=== PATIENT | female | born 1935 | race Caucasian/White ===

== ENCOUNTER 2019-04-14 14:54 | Emergency (ER) | payer MEDICARE, BC ==
[~2019-04-14] VITALS: Ht 160 cm; Wt 79.0 kg
[~2019-04-14 14:54] MED LIST: LOSA50TA3 PO; OMEP20TA5 PO
[2019-04-14] MEDS ORDERED: morphine 4 MG/ML inj SYRINge IV ONE (16:20)
[2019-04-14] MEDS ORDERED: ondansetron/PF 4mg/2ml inj IV ONE (16:20)
[2019-04-14] MEDS ORDERED: morphine ER 15mg tablet PO ONE ×2 (17:25→19:20)
[2019-04-14 18:08] VITALS: BP 177/81
[2019-04-14] MEDS ORDERED: MORP15TA PO (19:19)
[2019-04-14] MEDS ORDERED: ONDA4TAB6 PO (19:21)
== END 2019-04-14 19:47 | disposition home or self-care (01) ==
LOC: ER 14:54
DX: S32.028A Other fracture of second lumbar vertebra, initial encounter for closed fracture (principal); M25.562 Pain in left knee; I10 Essential (primary) hypertension; J45.909 Unspecified asthma, uncomplicated; Z98.890 Other specified postprocedural states; Z88.1 Allergy status to other antibiotic agents; Z88.2 Allergy status to sulfonamides; Z88.8 Allergy status to other drugs, medicaments and biological substances; Z88.5 Allergy status to narcotic agent; Z79.899 Other long term (current) drug therapy; W10.8XXA Fall (on) (from) other stairs and steps, initial encounter; Y93.89 Activity, other specified; Y92.098 Other place in other non-institutional residence as the place of occurrence of the external cause; Y99.8 Other external cause status
CPT/HCPCS: 72131; 72192; 73564; 96374; 96375; 99284; J2270; J2405

== ENCOUNTER 2021-02-05 08:08 | Day surgery (SDC) | payer MEDICARE, BC ==
[2021-02-05] VITALS (11 sets, daily range): BP systolic 114–150; BP diastolic 33–74
[~2021-02-05] VITALS: Ht 160 cm; Wt 71.4 kg
[~2021-02-05 08:08] MED LIST changes: +ONDA4TAB6 PO
[2021-02-05] MEDS ORDERED: vancomycin/NS 1 GM ADD-VANTAGE 250 ML X 1 DOSE IV ONE (08:35)
[2021-02-05] MEDS ORDERED: cefazolin/dext.iso 2gm/50ml 50 ML IV ONE (08:40)
[2021-02-05] MEDS ORDERED: CLINDAMYCIN/D5W 900mg/50ml 50 ML IV ONE (08:45)
[2021-02-05] MEDS ORDERED: INSU100I8 SQ (09:17)
[2021-02-05] MEDS ORDERED: fentaNYL/PF 50MCG/1 ML 2ML syringe ONE (09:24)
[2021-02-05] MEDS ORDERED: midazolam 1 mg/ML 2ml injection ONE (09:24)
[2021-02-05] MEDS ORDERED: LIDOcaine 1% w/EPI 1:100,000 30ml vial (MDV) ONE (09:24)
[2021-02-05] MEDS ORDERED: ceFAZolin 1000mg inj ONE (09:25)
[2021-02-05 09:45] LABS: BASOPHILS # (AUTO) 0.1 X10'3 (0-0.2); EOSINOPHILS # (AUTO) 0.2 X10'3 (0-0.9); EOSINOPHILS % (AUTO) 2.4 % (0-6); HEMATOCRIT 50.8 % (35.0-45.0); HEMOGLOBIN 17.3 g/dl (12.0-16.0); LYMPHOCYTES # (AUTO) 1.8 X10'3 (1.1-4.8); MEAN CORPUSCULAR HEMOGLOBIN 28.9 PG (27.0-31.0); MEAN CORPUSCULAR HGB CONC 34.1 g/dL (33.0-36.5); MEAN CORPUSCULAR VOLUME 84.6 FL (78-98); MEAN PLATELET VOLUME 9.3 FL (7.4-10.4); MONOCYTES # (AUTO) 0.5 X10'3 (0-0.9); MONOCYTES % (AUTO) 7.2 % (2-12); NEUTROPHILS # (AUTO) 4.3 X10'3 (1.8-7.7); NEUTROPHILS % (AUTO) 63.4 % (42-75); PLATELET COUNT 180 X10'3 (140-440); WHITE BLOOD COUNT 6.8 X10'3 (4.5-11.0)
[2021-02-05 09:52] LABS: ALBUMIN 4.1 G/DL (3.4-5.0); ANION GAP 11 (8-16); BLOOD UREA NITROGEN 26 MG/DL (7-18); BUN/CREATININE RATIO 20.5 (6.6-38.0); CALCIUM 9.5 MG/DL (8.5-10.1); CHLORIDE 104 MMOL/L (99-107); CREATININE 1.27 MG/DL (0.40-0.90); GLUCOSE 108 MG/DL (70-104); MAGNESIUM 2.4 MG/DL (1.5-2.4); POTASSIUM 4.2 MMOL/L (3.5-5.1); SODIUM 141 MMOL/L (135-145); eGFR 40 ML/MIN
[2021-02-05] MEDS ORDERED: vancomycin 1,000mg inj ONE (10:56)
[2021-02-05] MEDS ORDERED: normal saline 1000ml 1,000 ML IV SCH (12:10)
[2021-02-05] MEDS ORDERED: normal saline 1000ml 1,000 ML IV ONE (12:10)
[2021-02-05] MEDS ORDERED: diphenhydrAMINE 50 mg/ml inj IV ONE (13:55)
[2021-02-05] MEDS ORDERED: diphenhydrAMINE 50 mg/ml inj ONE (13:57)
== END 2021-02-05 15:30 | disposition home or self-care (01) ==
LOC: SSTAY O 08:08
PROVIDERS: ATTEND Internal Medicine Cardiovascular Disease
DX: Z45.010 Encounter for checking and testing of cardiac pacemaker pulse generator [battery] (principal); I42.9 Cardiomyopathy, unspecified; E11.9 Type 2 diabetes mellitus without complications; I50.20 Unspecified systolic (congestive) heart failure; Z98.890 Other specified postprocedural states; Z79.4 Long term (current) use of insulin; Z79.01 Long term (current) use of anticoagulants; Z96.651 Presence of right artificial knee joint; Z79.899 Other long term (current) drug therapy; Z88.8 Allergy status to other drugs, medicaments and biological substances; Z88.0 Allergy status to penicillin; Z88.2 Allergy status to sulfonamides; Z88.5 Allergy status to narcotic agent
CPT/HCPCS: 33228; 36415; 80048; 83735; 85025; 85610; 93005; 99152; 99153; C1785; C1894; J0690; J1200; J2250; J3010; J3370; A4620; A6258

== ENCOUNTER 2021-09-27 08:04 | Day surgery (SDC) | payer MEDICARE, BC ==
[~2021-09-27] VITALS: Ht 160 cm; Wt 70.4 kg
[~2021-09-27 08:04] MED LIST changes: +INSU100I8 SQ; -LOSA50TA3 PO; -OMEP20TA5 PO; -ONDA4TAB6 PO
[2021-09-27 08:28] VITALS: BP 124/67
[2021-09-27] MEDS ORDERED: NO HOME MEDS (08:36)
[2021-09-27] MEDS ORDERED: cefazolin/dext.iso 2gm/100ml 100 ML IV ONE (08:45)
[2021-09-27 09:52] LABS: ALBUMIN 3.1 G/DL (3.4-5.0); ANION GAP 14 (8-16); BLOOD UREA NITROGEN 35 MG/DL (7-18); BUN/CREATININE RATIO 43.8 (6.6-38.0); CALCIUM 9.1 MG/DL (8.5-10.1); CHLORIDE 108 MMOL/L (99-107); GLUCOSE 103 MG/DL (70-104); MAGNESIUM 1.9 MG/DL (1.5-2.4); POTASSIUM 3.9 MMOL/L (3.5-5.1); SODIUM 138 MMOL/L (135-145); TOTAL CARBON DIOXIDE 16.2 MMOL/L (24-32); eGFR 68 ML/MIN
[2021-09-27] MEDS ORDERED: midazolam 1 mg/ML 2ml injection ONE ×3 (10:07→11:37)
[2021-09-27] MEDS ORDERED: fentaNYL/PF 50MCG/1 ML 2ML syringe ONE (10:07)
[2021-09-27] MEDS ORDERED: LIDOCAINE 2% w/EPI 1:100:000 30mL injection MDV**cath lab 1 only ONE (10:08)
[2021-09-27] MEDS ORDERED: vancomycin 1,000mg inj ONE (10:29)
[2021-09-27] MEDS ORDERED: clindamycin-Cleocin 900mg/D5W 50 ML IV ONE (10:40)
[2021-09-27 10:46] LABS: EOSINOPHILS # (AUTO) 0.2 X10'3 (0-0.9)
[2021-09-27 10:48] LABS: BASOPHILS % (AUTO) 0.3 % (0-1); EOSINOPHILS % (AUTO) 2.4 % (0-6); HEMATOCRIT 46.3 % (35.0-45.0); HEMOGLOBIN 15.7 g/dl (12.0-16.0); LYMPHOCYTES % (AUTO) 23.4 % (21-51); MEAN CORPUSCULAR HEMOGLOBIN 28.7 PG (27.0-31.0); MEAN CORPUSCULAR HGB CONC 33.8 g/dL (33.0-36.5); MEAN CORPUSCULAR VOLUME 84.9 FL (78-98); MEAN PLATELET VOLUME 8.9 FL (7.4-10.4); MONOCYTES # (AUTO) 0.7 X10'3 (0-0.9); MONOCYTES % (AUTO) 7.7 % (2-12); NEUTROPHILS # (AUTO) 5.6 X10'3 (1.8-7.7); NEUTROPHILS % (AUTO) 66.2 % (42-75); RED BLOOD COUNT 5.46 X10'6 (4.20-5.60); RED CELL DISTRIBUTION WIDTH 13.9 % (11.5-14.5); WHITE BLOOD COUNT 8.4 X10'3 (4.5-11.0)
[2021-09-27 10:49] LABS: PLATELET COUNT 181 X10'3 (140-440)
[2021-09-27 12:10] VITALS: BP 118/67
[2021-09-27 12:25] VITALS: BP 132/60
[2021-09-27 12:40] VITALS: BP 134/64
[2021-09-27] MEDS ORDERED: pneumococcal 23-VAL P-sac vacc 25 mcg/0.5ml vial IMVAC ONE (13:05)
[2021-09-27 13:14] VITALS: BP 147/81
[2021-09-27 13:45] VITALS: BP 142/80
== END 2021-09-27 14:30 | disposition home or self-care (01) ==
LOC: SSTAY O 08:04
PROVIDERS: ATTEND Internal Medicine Cardiovascular Disease
DX: I50.20 Unspecified systolic (congestive) heart failure (principal); Z53.8 Procedure and treatment not carried out for other reasons; I42.9 Cardiomyopathy, unspecified; E11.9 Type 2 diabetes mellitus without complications; Z95.0 Presence of cardiac pacemaker; Z98.890 Other specified postprocedural states; Z79.4 Long term (current) use of insulin; Z79.899 Other long term (current) drug therapy
CPT/HCPCS: 36000; 36415; 76937; 80048; 83735; 85025; 85610; 93005; C1887; C1894; J2250; J3010; J3370; J3490; J7030; 99152; 99153; A4620; A6258